=== PATIENT | male | born 1965 | race Caucasian/White ===

== ENCOUNTER 2017-03-30 19:19 | Emergency (ER) | payer SELFPAY ==
[~2017-03-30] VITALS: Ht 177.8 cm; Wt 108.9 kg
[2017-03-30 19:49] VITALS: BP 127/82
[2017-03-31] MEDS ORDERED: LIDOCAINE 1% HCL (LOCAL ANESTH.) INJ 20ML MDV IJ ONE
== END 2017-03-31 01:05 | disposition home or self-care (01) ==
LOC: ER 19:27
DX: L02.212 Cutaneous abscess of back [any part, except buttock and flank] (principal)
CPT/HCPCS: 10060; 87205; 99283; J2001